=== PATIENT | female | born 1990 | race Caucasian/White ===

== ENCOUNTER 2021-07-28 15:33 | Emergency (ER) | payer OTHER, SELFPAY ==
[2021-07-28 15:34] VITALS: BP 133/85; PULSE 70; RESP 14; TEMP 36.4; O2SAT 100; BMI 31.7
--- NOTE | 2021-07-28 15:46 | EKG12_ITS ---
Test Reason : CP Blood Pressure : / mmHG Vent. Rate : 069 BPM Atrial Rate : 069 BPM P-R Int : 126 ms QRS Dur : 076 ms QT Int : 392 ms P-R-T Axes : 013 049 035 degrees QTc Int : 420 ms Normal sinus rhythm Normal ECG Confirmed by ZEYNEP BUENO, TRUPTI ([id number]), film editor supervisor GENNY ALVARADO ([id number]) on 07/30/2021 9:19:38 AM Referred By: PRADIP Confirmed By:TRUPTI ADHIKARI MD
--- NOTE | 2021-07-28 15:47 | EDS_ITS ---
HPI History of Present Illness Chief Complaint: Chest Pain Narrative Narrative: 31-year-old female with no reported past medical history presents with chest pain which she describes as retrosternal and radiating to the left shoulder. She states that this started about 30 minutes prior to arrival. Patient states she was sitting in a sewing machine doing work and when she stood up to walk outside she began to feel lightheaded and then had chest pain which she describes as sharp and heavy. She did not have an episode of syncope. She does relate that she was a little sweaty and nauseous during this episode initially. She states at that time her pain was 10 of 10. It is now 3 of 10. Patient has no DVT risk factors and no history. Patient has no history of cardiac related problems. She states her last blood work was done about 4 years ago with the of her last child and there was no abnormalities then. She denies any cough, cold, fever, chills. She states she was otherwise healthy prior to this incident. CVD Risk Factors: Negative for Hypertension, Diabetes and Hypercholesterolemia PE Risk Factors: Negative for Recent Travel/Surgery, Recent Immobilization, Prior DVT or PE and OCP + Smoking + >/=35 PFSH PFSH Medical History no medical history Home Medications NK 07/28/21 [History Last Taken Unknown] Allergy/AdvReac Type Severity Reaction Status Date / Time No Known Allergies Allergy Verified 07/28/21 15:34 Surgical History no surgical history Social History Smoking Status: Never smoker [facility] ED Constitutional Constitutional ED: Denies chills or fever(s) Eyes Eyes: Denies blurry vision or change in vision ENT ENT ED: Denies rhinorrhea or sore throat Cardiovascular Cardiovascular: Reports chest pain and palpitations Respiratory/Chest Respiratory/Chest: Denies cough or sputum Gastrointestinal Gastrointestinal: Reports nausea; Denies abdominal pain or vomiting Genitourinary Genitourinary ED: Denies dysuria or hematuria Musculoskeletal Musculoskeletal: Denies arthralgias, back pain, myalgias or neck pain Integumentary Denies Abrasions or rash Neurologic Neurologic: Denies headache(s) or paresthesias EXAM Physical Exam Const Vital Signs: 07/28/21 15:34 07/28/21 15:39 07/28/21 15:50 Temperature 97.5 F L Temperature Source Temporal Pulse Rate 70 Respiratory Rate 14 Respiratory Effort Normal Non-Labored Blood Pressure 133/85 H Blood Pressure Mean 101 Pulse Ox 100 Oxygen Delivery Method Room Air Room Air 07/28/21 16:03 07/28/21 16:29 Temperature Temperature Source Pulse Rate 86 76 Respiratory Rate 15 Respiratory Effort Blood Pressure 126/83 H 126/83 H Blood Pressure Mean 97 Pulse Ox 96 Oxygen Delivery Method Room Air Positive well nourished General Appearance ED: NAD; Negative for pallor HEENT Reports moist mucous membranes normocephalic and atraumatic Eyes PERRL and EOMs intact bilaterally Chest Wall Chest: tenderness sternum Resp normal respiratory effort and clear to auscultation bilaterally Cardio regular rate and regular rhythm GI normal to inspection, nondistended, normoactive bowel sounds Extremity normal to inspection General Extremety ED: Negative for edema or tenderness General Extremity: Negative for edema Neuro oriented x3, CN's II-XII intact bilaterally and no sensory deficits noted Sensorium / Orientation: awake and alert Motor Exam: strength 5/5 throughout Psych mental status grossly normal Skin General Skin Exam: Negative for jaundice or pallor Heart Score History: Slightly/Non-Suspicious ECG: Normal Age: </= 45 years Risk Factors: No Risk Factors Score: 0 MDM MDM MDM Narrative Medical decision making narrative: 31-year-old female with no reported past medical history presenting with chest pain which is sternal and she states radiates to left shoulder. On examination she does have reproducible pain in the sternum. There is no crepitance or deformity. Lungs are clear to auscultation. Equal symmetric breath sounds and chest wall rise. Patient had EKG which on my interpretation shows normal sinus rhythm with a ventricular rate of 69 bpm with no signs of ischemic change or dysrhythmia. CBC is unremarkable. BMP does show slightly elevated glucose of 140 however the patient states she ate a salad prior to her symptoms starting. There is no anion gap. Chest x-ray on my interpretation shows no acute cardiopulmonary process and the radiologist does agree. Initial troponin is 4. Patient is PERC negative but will have delta troponin. Second troponin is 4. Based on this I feel the chest pain source is likely not cardiac. Again she is PERC negative. Patient states that she will follow-up with her primary care provider. She is given return precautions. Patient stable for discharge. Impression: 1. Chest pain Lab Data Attestation: I reviewed the patient's lab results. Labs: Laboratory Results - last 24 hr 07/28/21 07/28/21 07/28/21 15:35 15:35 17:35 WBC 8.1 RBC 4.57 Hgb 12.9 Hct 38.0 MCV 83.2 MCH 28.2 MCHC 33.9 RDW Std Deviation 42.5 RDW Coeff of Azucena 14.1 Plt Count 347 MPV 9.1 Immature Gran % (Auto) 0.500 Neut % (Auto) 60.6 Lymph % (Auto) 28.7 [place] % (Auto) 8.7 Eos % (Auto) 1.1 Baso % (Auto) 0.4 Absolute Neuts (auto) 4.9 Absolute Lymphs (auto) 2.31 Nucleated RBC % 0 Sodium 138 Potassium 4.0 Chloride 107 Carbon Dioxide 24.0 Anion Gap 7 BUN 10 Creatinine 0.81 Estim Creat Clear Calc 85.30 Est GFR (MDRD) Af Amer 105 Est GFR (MDRD) Non-Af 87 BUN/Creatinine Ratio 12.4 Glucose 140 H Calcium 9.2 Troponin I High Sens 4 4 Radiography Diagnostic Testing: Clinical Impression(s) from Imaging Studies Chest X-Ray 07/28/21 15:50 IMPRESSION: Normal x-ray examination of the chest. Electronically Signed: Larry Johnson DO at 16:13 EDT Tel [phone], Service support , Discharge Plan Triage Chief Complaint: Chest Pain ED Provider: Levon Ge Dx/Rx/DC Orders Instructions: ED Chest Pain, Noncardiac Prescriptions: No Action NK RF: 0 Primary Care Provider: Care Physician,No Primary Referrals: Care Physician,No Primary [Primary Care Provider] - Disposition Disposition: Home, Self Care
--- NOTE | 2021-07-28 15:50 | RAD_ITS ---
STUDY: X-RAY CHEST REASON FOR EXAM: Female, 31 years old. Chest pain TECHNIQUE: Frontal view COMPARISON: None. FINDINGS: The lungs are clear and expanded. There is no demonstrated pleural abnormality. Normal size heart. Normal mediastinum and atilio. Normal visualized pulmonary arteries. Normal visualized aortic arch and descending thoracic aorta. Normal visualized thoracic spine. Normal visualized ribs, clavicles, and shoulders. There is no demonstrated abnormality of the visualized soft tissue structures of the upper abdomen. RAD/Chest 1 View (Portable) IMPRESSION: Normal x-ray examination of the chest. Electronically Signed: Larry Johnson DO at 16:13 EDT Tel [phone], Service support ,
[2021-07-28 15:55] LABS: Absolute Lymphocyte Count 2.31 X10^3/uL (0.83-4.51); Absolute Neutrophil Count 4.9 X10^3/uL (2.0-7.7); Basophil# 0.03 X10^3/uL; Basophil% 0.4 % (0-1); Eosinophil# 0.09 X10^3/uL; Eosinophils% 1.1 % (0-5); Hemoglobin 12.9 g/dL (12.0-15.0); Lymphocyte # 2.31 X10^3/ul (0.83-4.51); Lymphocyte % 28.7 % (19-41); Mean Corp Hgb Conc 33.9 g/dL (32-36); Mean Corpuscular Hgb 28.2 pg (27.0-32.0); Mean Corpuscular Volume 83.2 fL (81-99); Mean Platelet Vol. 9.1 fl (6.2-12.0); Monocyte% 8.7 % (0-10); NRBC Flagged by Analyzer 0 % (0-5); Neutrophil # 4.89 X10^3/uL (2.7-7.7); Neutrophil % 60.6 % (47-70); Platelet Count 347 K/mm3 (150-450); RBC Distribution Width CV 14.1 % (11.6-14.6); RBC Distribution Width SD 42.5 fl (35.1-43.9); Red Blood Count 4.57 M/mm3 (4.2-5.4); White Blood Count 8.1 K/mm3 (4.4-11.0)
[2021-07-28 16:03] VITALS: BP 126/83; PULSE 86
[2021-07-28] MEDS: Aspirin 81 MG TAB.CHEW 324 MG PO (16:03)
[2021-07-28] MEDS: Nitroglycerin SL (ED/IMG/CATH) 0.4 MG TABLET SL (16:03)
[2021-07-28 16:09] LABS: Anion Gap 7 (5-15); BUN 10 mg/dL (7-18); BUN/Creat Ratio 12.4 RATIO (10-20); Calcium,Total 9.2 mg/dL (8.5-10.1); Chloride 107 mmol/L (98-107); Creatinine, Serum 0.81 mg/dL (0.55-1.02); EST Glomerular Filtration Rate 87 mL/min (>60); Est Glom Filt Rate - Afr Amer 105 mL/min (>60); Glucose 140 mg/dL (74-106); Sodium Level 138 mmol/L (136-145); Troponin-I HS 4 pg/mL (3.0-54.0)
--- NOTE | 2021-07-28 16:12 | CM.ED ---
GAUTAM Note Referrral Source: Case Find Referral Reason: NO PCP and no Insurance GAUTAM reviewed patient's chart and noted that patient has no insurance and no PCP (Primary Care Physican). Sw provided patient with [facility] Physician's directory and Self Pay packet as patient has no insurance. Plan: Provided patient with self pay packet and [facility] Physician's Directory Christine NOLAN
[2021-07-28 16:29] VITALS: BP 126/83; PULSE 76; RESP 15; O2SAT 96
[2021-07-28 18:02] LABS: Troponin-I HS 4 pg/mL (3.0-54.0)
[2021-07-28 18:20] VITALS: BP 126/83; PULSE 71; RESP 15; O2SAT 98
== END 2021-07-28 18:21 | disposition home or self-care (01) ==
PROVIDERS: Emergency Provider Student in an Organized Health Care Education/Training Program
DX: R07.89 Other chest pain (principal); R11.0 Nausea; R42 Dizziness and giddiness; R00.2 Palpitations
CPT/HCPCS: 71045; 80048; 84484; 85025; 93005; 99285; A4216